=== PATIENT | female | born 1995 | race Caucasian/White ===

== ENCOUNTER → 2025-07-19 15:42 | Outpatient (REF) | payer OTHER, SELFPAY | LOC: PNTC 15:42 | PROVIDERS: ATTENDING PHYSICIAN Obstetrics & Gynecology | DX: Z36.0 Encounter for antenatal screening for chromosomal anomalies (principal); Z36.82 Encounter for antenatal screening for nuchal translucency | CPT/HCPCS: 76801; 76813 ==

== ENCOUNTER → 2025-08-09 15:39 | Outpatient (REF) | payer OTHER, SELFPAY | LOC: PNTC 15:39 | PROVIDERS: ATTENDING PHYSICIAN Obstetrics & Gynecology | DX: O10.019 Pre-existing essential hypertension complicating pregnancy, unspecified trimester (principal); O34.219 Maternal care for unspecified type scar from previous cesarean delivery | CPT/HCPCS: 76805 ==

== ENCOUNTER → 2025-09-08 15:58 | Outpatient (REF) | payer OTHER, SELFPAY | LOC: PNTC 15:58 | PROVIDERS: ATTENDING PHYSICIAN Obstetrics & Gynecology | DX: O34.219 Maternal care for unspecified type scar from previous cesarean delivery (principal); O11.2 Pre-existing hypertension with pre-eclampsia, second trimester; Z36.86 Encounter for antenatal screening for cervical length; O43.212 Placenta accreta, second trimester | CPT/HCPCS: 76811; 76817; 93976 ==

== ENCOUNTER → 2025-10-05 10:14 | Outpatient (REF) | payer OTHER, SELFPAY | LOC: PNTC 10:14 | PROVIDERS: ATTENDING PHYSICIAN Obstetrics & Gynecology | DX: O99.213 Obesity complicating pregnancy, third trimester (principal); O34.219 Maternal care for unspecified type scar from previous cesarean delivery; O10.013 Pre-existing essential hypertension complicating pregnancy, third trimester | CPT/HCPCS: 76816 ==

== ENCOUNTER → 2025-11-01 11:22 | Outpatient (REF) | payer OTHER, SELFPAY | LOC: PNTC 11:22 | PROVIDERS: ATTENDING PHYSICIAN Obstetrics & Gynecology | DX: O99.213 Obesity complicating pregnancy, third trimester (principal); O34.219 Maternal care for unspecified type scar from previous cesarean delivery; O10.013 Pre-existing essential hypertension complicating pregnancy, third trimester | CPT/HCPCS: 36415; 76816; 86850; 86900; 86901; 96372; J2790 ==